=== PATIENT | male | born 1980 | race Caucasian/White ===

== ENCOUNTER 2018-08-16 13:32 | Emergency (ER) | payer SELFPAY ==
[2018-08-16] MEDS ORDERED: HYDROXYZINE PAMOATE 50 MG CAPSULE PO ONE (14:35)
--- NOTE | 2018-08-16 14:36 | ER Document Report ---
ED Medical Screen (RME) - General Chief Complaint: Psych Problem Stated Complaint: PSYCH EVAL Time Seen by Provider: 08/16/18 14:31 Notes: Patient is extremely tearful throughout the entire interview. Patient is here because he has nothing else to try. He says he is breaking down. Has been feeling to press and has a history of depression, but not on any medications or under any counseling at this time. Is been feeling especially bad over the past week and 1/2-2 weeks. He keeps losing his jobs and lost his most recent one recently. Lives with his mother. Is having suicidal thoughts. Denies any substance abuse or alcohol intake except for smoking marijuana. - Related Data Allergies/Adverse Reactions: No Known Allergies Allergy (Verified 08/16/18 13:34) Past Medical History - Social History Frequency of alcohol use: None Drug Abuse: None Renal/ Medical History: Denies: Hx Peritoneal Dialysis Psychiatric Medical History: Reports: Hx Depression - Immunizations Immunizations up to date: Yes Hx Diphtheria, Pertussis, Tetanus Vaccination: Yes Physical Exam - Vital signs Vitals: Temp Pulse Resp BP Pulse Ox 98.4 F 84 16 143/103 H 98 08/16/18 13:35 08/16/18 13:35 08/16/18 13:35 08/16/18 13:35 08/16/18 13:35 Course - Vital Signs Vital signs: Temp Pulse Resp BP Pulse Ox 98.4 F 84 16 143/103 H 98 08/16/18 13:35 08/16/18 13:35 08/16/18 13:35 08/16/18 13:35 08/16/18 13:35 Doctor's Discharge - Discharge Referrals: LOCALMD,NO [Primary Care Provider] - Follow up as needed
--- NOTE | 2018-08-16 15:08 | EKG REPORT ---
SEVERITY:- NORMAL ECG - SINUS RHYTHM : Confirmed by: Naif Moreno 16-Aug-2018 15:06:46
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
[2018-08-16 15:15] LABS: ABSOLUTE BASOPHILS # (AUTO) 0.1 10^3/uL (0.0-0.2); ABSOLUTE EOSINOPHILS # (AUTO) 0.7 10^3/uL (0.0-0.6); ABSOLUTE MONOCYTES (AUTO) 0.8 10^3/uL (0.1-1.4); ABSOLUTE NEUT (AUTO) 5.4 10^3/uL (1.7-8.2); BASOPHILS % (AUTO) 1.3 % (0-2); EOSINOPHILS % (AUTO) 7.9 % (0-6); HEMATOCRIT 48.5 % (37.9-51.0); HEMOGLOBIN 16.8 g/dL (13.5-17.0); LYMPHOCYTES % (AUTO) 22.4 % (13-45); MEAN CORPUSCULAR HEMOGLOBIN 32.7 pg (27.0-33.4); MEAN CORPUSCULAR HGB CONC 34.7 g/dL (32.0-36.0); MEAN CORPUSCULAR VOLUME 94 fl (80-97); MONOCYTES % (AUTO) 8.3 % (3-13); PLATELET COUNT 260 10^3/uL (150-450); RED BLOOD COUNT 5.14 10^6/uL (4.35-5.55); SEGMENTED NEUTROPHILS % (AUTO) 60.1 % (42-78); TOTAL CELLS COUNTED % (AUTO) 100 %
[2018-08-16 15:21] LABS: APPEARANCE,URINE CLEAR; BILIRUBIN,URINE NEGATIVE (NEGATIVE); COLOR,URINE YELLOW; GLUCOSE, URINE NEGATIVE (NEGATIVE); KETONES,URINE NEGATIVE (NEGATIVE); LEUKOCYTE ESTERASE,URINE TRACE (NEGATIVE); NITRITE,URINE NEGATIVE (NEGATIVE); PROTEIN,URINE NEGATIVE (NEGATIVE); URINE SPECIFIC GRAVITY 1.011; UROBILINOGEN,URINE NEGATIVE mg/dL (<2.0)
[2018-08-16 15:33] LABS: ACETAMINOPHEN < 10 ug/mL (10-30); ALANINE AMINOTRANSFERASE 14 U/L (21-72); ALBUMIN 4.8 g/dL (3.5-5.0); ALCOHOL < 10 mg/dL (NONE DETECTED); ALKALINE PHOSPHATASE 65 U/L (38-126); ANION GAP 10 (5-19); ASPARTATE AMINO TRANSFERASE 22 U/L (17-59); BILIRUBIN,DIRECT 0.2 mg/dL (0.0-0.4); BILIRUBIN,TOTAL 0.6 mg/dL (0.2-1.3); BLOOD UREA NITROGEN 13 mg/dL (7-20); CALCIUM 9.7 mg/dL (8.4-10.2); CARBON DIOXIDE 24 mmol/L (22-30); CHLORIDE 109 mmol/L (98-107); GLUCOSE 87 mg/dL (75-110); POTASSIUM 4.4 mmol/L (3.6-5.0); SALICYLATE < 1.0 mg/dL (2.0-20.0); SODIUM 143.3 mmol/L (137-145); TOTAL PROTEIN 7.6 g/dL (6.3-8.2)
[2018-08-16 15:44] LABS: URINE AMPHETAMINES SCREEN NEGATIVE; URINE BARBITURATES SCREEN NEGATIVE; URINE BENZODIAZEPINES SCREEN NEGATIVE; URINE COCAINE SCREEN NEGATIVE; URINE MARIJUANA (THC) SCREEN UNCONFIRMED POSITIVE; URINE METHADONE SCREEN NEGATIVE; URINE PHENCYCLIDINE SCREEN NEGATIVE
[2018-08-16] MEDS ORDERED: NICOTINE 21 MG/24 HR PATCH.TD24 TD ONE (18:33)
--- NOTE | 2018-08-17 09:37 | ER Document Report ---
Doctor's Note Notes: Patient seen and evaluated by myself. Patient is a 38-year-old male who presents emergency department with suicidal ideations. Patient states that he is depressed. He recently lost his job and has been living with his mom. He is not currently on any medications. His urine drug screen did come back positive for marijuana. No issues overnight per nursing. His vital signs are stable. Patient states that he is not feeling suicidal any longer. He still feeling depressed and wants a referral to a psychiatrist. He states that he does not want to be placed on any medications at this time. Awaiting behavioral health recommendations. 08/17/18 16:37 Behavioral health evaluated the patient. They recommend discharge home. Patient currently denies any suicidal ideations. We will provide appropriate follow-up for the patient.
[2018-08-17] MEDS ORDERED: NICOTINE 21 MG/24 HR PATCH.TD24 TD ONE (13:36)
[2018-08-17 16:47] VITALS: BP 122/71
== END 2018-08-17 16:40 | disposition home or self-care (01) ==
LOC: ER 13:32
DX: R45.851 Suicidal ideations (principal); F17.200 Nicotine dependence, unspecified, uncomplicated
CPT/HCPCS: 36415; 80053; 80307; 81001; 85025; 93005; 93010; 99285